=== PATIENT | male | born 1995 | race African-American/Black ===

== ENCOUNTER 2018-12-06 18:38 | Emergency (ER) | payer OTHER ==
[2018-12-06 18:48] VITALS: BP 125/72
[2018-12-06] MEDS ORDERED: NS 0.9% 1000 ML** 1,000 ML IV ONE (19:05)
[2018-12-06] MEDS ORDERED: Ondansetron INJ* 2 MG/ML VIAL IV ONE (19:06)
--- NOTE | 2018-12-06 19:14 | UC ---
Headache HPI - HPI Summary HPI Summary: 23-year-old male comes in with chief complaint of headache. Patient suffers from migraines. This one is his left temporal parietal area. It is difficult his migraines are in different places in his head. This does feel like his typical migraine. he is nauseous has vomited. He took diclofenac little more than hour ago but he thinks he threw it up. No focal weakness no numbness. - History Of Current Complaint Chief Complaint: UCHeadache Stated Complaint: MIGRAINE, VOMITTING Time Seen by Provider: 12/06/18 19:00 Pain Intensity: 8 - Allergies/Home Medications Allergies/Adverse Reactions: Allergies Allergy/AdvReac Type Severity Reaction Status Date / Time No Known Allergies Allergy Verified 12/06/18 18:48 Home Medications: Home Medications Diclofenac Potassium [Zipsor] 25 mg PO ONCE 12/06/18 [History Confirmed 12/06/18 ] PMH/Surg Hx/FS Hx/Imm Hx Previously Healthy: Yes Neurological History: Migraine - Surgical History Surgical History: Yes Surgery Procedure, Year, and Place: left knee surgery - Family History Known Family History: Negative: Cardiac Disease, Hypertension, Diabetes - Social History Alcohol Use: None Substance Use Type: None Smoking Status (MU): Never Smoked Tobacco Review of Systems All Other Systems Reviewed And Are Negative: Yes Constitutional: Positive: Other - SEE HPI Skin: Positive: Negative Eyes: Positive: Negative ENT: Positive: Negative Respiratory: Positive: Negative Cardiovascular: Positive: Negative Gastrointestinal: Positive: Vomiting, Nausea Genitourinary: Positive: Negative Motor: Positive: Negative Neurovascular: Positive: Negative Musculoskeletal: Positive: Negative Neurological: Positive: Headache Psychological: Positive: Negative Is Patient Immunocompromised?: No Physical Exam Triage Information Reviewed: Yes Appearance: Well-Nourished, Ill-Appearing - MILD, Pain Distress - MILD Vital Signs: Initial Vital Signs Temp 97.3 F 12/06/18 18:45 Pulse 63 12/06/18 18:45 Resp 20 12/06/18 18:45 BP 125/72 12/06/18 18:45 Pulse Ox 98 12/06/18 18:45 Vital Signs Reviewed: Yes Eyes: Positive: Conjunctiva Clear Neck: Positive: Supple Respiratory: Positive: No respiratory distress Musculoskeletal: Positive: Strength Intact, ROM Intact Neurological: Positive: Alert, Muscle Tone Normal Psychological: Positive: Age Appropriate Behavior Skin Exam: Normal Headache Course/Dx - Course Course Of Treatment: In clinic patient received 1 L of normal saline and 4 mg of Zofran. His headache had decreased with that. Patient reports having taken 25 mg of diclofenac prior to arrival which she was unsure if he threw up or not. Typical dosing for migraines 50 mg of diclofenac and a single dose. We discussed treatment care clinic with Toradol. Patient prefers to have some Toradol. Gave 15 mg as a half dose to the possibility of a half dose of diclofenac that may or may not thrown up. Patient improved greatly after the Toradol. Follow-up with his [facility] clinic or reevaluate here if needed or go to the emergency department if worse. - Differential Dx/Diagnosis Provider Diagnosis: Migraine, Nausea & vomiting Discharge - Sign-Out/Discharge Documenting (check all that apply): Patient Departure All imaging exams completed and their final reports reviewed: No Studies - Discharge Plan Condition: Stable Disposition: HOME Prescriptions: Ondansetron ODT TAB* [Zofran 4 MG Odt TAB*] 4 mg PO Q6H PRN #10 tab.odt PRN Reason: Nausea Patient Education Materials: Migraine Headache (ED) Referrals: [facility] [place] [facility] [Outside] [facility] [Outside] Additional Instructions: FOLLOW UP WITH YOUR DOCTOR IF NOT COMPLETELY IMPROVED. GET REEVALUATED SOONER IF WORSE OR ANY QUESTIONS OR CONCERNS. - Billing Disposition and Condition Condition: STABLE Disposition: Home
[2018-12-06] MEDS ORDERED: Ketorolac INJ* 30 MG/ML 1 ML VIAL IV PUSH ONE (19:51)
[2018-12-06] MEDS ORDERED: Ondansetron ODT TAB* 4 MG PO ONE (20:13)
== END 2018-12-06 20:31 | disposition home or self-care (01) ==
LOC: UCCORT 18:38
DX: G43.909 Migraine, unspecified, not intractable, without status migrainosus (principal); R11.2 Nausea with vomiting, unspecified
CPT/HCPCS: 96361; 96374; 96375; 99212; A9270-GY; G0463; J1885; J2405